=== PATIENT | female | born 1950 | race Caucasian/White ===

== ENCOUNTER → 2024-04-07 08:23 | Outpatient (CLI) | payer MEDICARE, SELFPAY ==
[2024-04-07 09:38] LABS: Add Manual Diff / Slide Review NO; Basophils Absolute Auto 0 /uL (0-100); Basophils Percent Auto 0.5 % (0-2); Eosinophils Absolute Auto 0 /uL (0-450); Eosinophils Percent Auto 0.7 % (2-4); Hematocrit 40.9 % (36-46); Hemoglobin 13.9 g/dL (12.0-16.0); Lymphocytes Absolute Auto 4300 /uL (1100-4500); Lymphocytes Percent Auto 68.9 % (25-40); Mean Corpuscular HGB Conc 33.9 % (30-36); Mean Corpuscular Hemoglobin 31.4 PG (26-34); Mean Corpuscular Volume 92.4 fL (80-100); Monocytes Absolute Auto 700 /uL (0-900); Monocytes Percent Auto 11.5 % (3-14); Neutrophils Absolute Auto 1200 /uL (1500-7000); Neutrophils Percent Auto 18.4 % (50-75); Platelet Count 201 X10^3/uL (150-400); Red Blood Cell Count 4.43 X10^6/uL (4.0-5.2); Red Cell Distribution Width 13.2 % (11.6-14.8); White Blood Cell Count 6.3 X10^3/uL (4.5-11.0)
[2024-04-07 09:41] LABS: HEMOLYSIS < 15 (0-50); Iron 118 ug/dL (37-170)
[2024-04-07 09:42] LABS: Alanine Aminotransferase 24 IU/L (<35); Albumin 4.7 g/dL (3.5-5.0); Albumin Globulin Ratio 1.6 (1.0-2.8); Alkaline Phosphatase 65 U/L (38-126); Aspartate Aminotransferase 34 IU/L (14-36); BUN Creatinine Ratio 12.8 (6-22); Bilirubin Total 0.7 mg/dL (0.2-1.3); Blood Urea Nitrogen 11 mg/dL (7-17); Calcium 10.1 mg/dL (8.4-10.2); Carbon Dioxide 28 mmol/L (22-32); Chloride 105 mmol/L (98-107); Cholesterol 252 mg/dL (140-199); Estimated Glomerular Filt Rate > 60 mL/min (>60); Glucose 93 mg/dL (80-110); HEMOLYSIS < 15 (0-50); Potassium 4.4 mmol/L (3.4-5.1); Sodium 138 mmol/L (137-145); Total Protein 7.7 g/dL (6.3-8.2); Triglycerides 61 mg/dL (35-150)
[2024-04-07 09:49] LABS: HDL Cholesterol 142 mg/dL (40-60); LDL Cholesterol Calculated 98 mg/dL (<100)
[2024-04-07 09:53] LABS: Percent Iron Saturation 40 % (15-50); Total Iron Binding Capacity 292 ug/dL (265-497); Transferrin 281 mg/dL (206-381)
[2024-04-07 10:13] LABS: TSH w/ Reflex to FT4 4.82 uIU/mL (0.47-4.68)
[2024-04-07 10:17] LABS: Ferritin 39 ng/mL (11-264)
[2024-04-07 10:42] LABS: Free T4, Direct Thyroxine 1.22 ng/dL (0.78-2.19)
== END ==
PROVIDERS: PCP Family Medicine; Referring Provider Family Medicine; Visit Provider Family Medicine
DX: M85.80 Other specified disorders of bone density and structure, unspecified site (principal); Z86.39 Personal history of other endocrine, nutritional and metabolic disease; Z13.6 Encounter for screening for cardiovascular disorders; D72.820 Lymphocytosis (symptomatic); Z12.39 Encounter for other screening for malignant neoplasm of breast; I73.00 Raynaud's syndrome without gangrene
CPT/HCPCS: 36415; 80053; 80061; 82728; 83540; 83550; 84439; 84443; 85025

== ENCOUNTER → 2024-04-27 12:32 | Outpatient (CLI) | payer MEDICARE, SELFPAY ==
--- NOTE | 2019-04-28 13:04 | DI.MRI.S_ITS ---
Patient: ANGELIQUE WEBER. Gender: Female Date of : 1950. Age: 73 MPI: [id number] Acc: [id number] MR breast BI wo/w con: 04/27/2024. BI-RADS: 2 CLINICAL: 73-year old female for bilateral diagnostic breast MRI. Current reported family history of breast cancer: mother. PRIOR EXAMS Outside mammogram 03/04/2023. MRI TECHNIQUE Bilateral breast MRI was performed on a 1.5 Cierra magnet using a dedicated breast coil with mild compression. Axial T1 and T2 STIR sequences were obtained. Dynamic contrast enhanced VIBRANT fat- suppressed sequences were obtained. Delayed sagittal high resolution or sagittal reconstructed isotropic sequence was also obtained. Subtraction images and maximum intensity projection images were obtained. The study was evaluated using [email or web address] software. Prohance was injected intravenously: 20 mL. FIBROGLANDULAR TISSUE Bilateral: C. Heterogeneous fibroglandular tissue. BACKGROUND PARENCHYMAL ENHANCEMENT Bilateral: Minimal symmetrical background parenchymal enhancement. BREAST FINDINGS Bilateral: There are benign postsurgical changes from prior implant explantation. There is no suspicious enhancement or lymphadenopathy. IMPRESSION No evidence of malignancy with benign findings. RECOMMENDATIONS Bilateral Annual screening mammography. OVERALL ASSESSMENT CATEGORY BI-RADS-2: Benign. PRELIMINARILY ELECTRONICALLY SIGNED: Stacey Salas M.D. on 05/26/2024 at 11:54:20 AM PT Interpreting Station ID: [id number]
== END ==
PROVIDERS: PCP Family Medicine; Referring Provider Family Medicine; Visit Provider Family Medicine
DX: Z12.39 Encounter for other screening for malignant neoplasm of breast (principal); Z80.3 Family history of malignant neoplasm of breast; R92.333 Mammographic heterogeneous density, bilateral breasts
CPT/HCPCS: 77049; A9579

== ENCOUNTER → 2024-09-10 09:40 | Outpatient (CLI) | payer MEDICARE, SELFPAY ==
[2024-09-10 10:13] LABS: Hematocrit 39.7 % (36-46); Hemoglobin 13.5 g/dL (12.0-16.0); Mean Corpuscular HGB Conc 34.1 % (30-36); Mean Corpuscular Hemoglobin 31.3 PG (26-34); Mean Corpuscular Volume 91.7 fL (80-100); Platelet Count 203 X10^3/uL (150-400)
[2024-09-10 11:13] LABS: TSH w/ Reflex to FT4 0.21 uIU/mL (0.47-4.68)
[2024-09-10 11:54] LABS: Free T4, Direct Thyroxine 1.13 ng/dL (0.78-2.19)
== END ==
PROVIDERS: PCP Family Medicine; Referring Provider Family Medicine; Visit Provider Family Medicine
DX: M85.89 Other specified disorders of bone density and structure, multiple sites (principal); Z86.39 Personal history of other endocrine, nutritional and metabolic disease; D72.820 Lymphocytosis (symptomatic)
CPT/HCPCS: 36415; 84439; 84443; 85027; 85651; 86038; 86140; 86430